=== PATIENT | male | born 1985 | race Caucasian/White ===

== ENCOUNTER 2020-12-02 16:30 | Emergency (ER) | payer BC, SELFPAY ==
--- NOTE | ~2020-12-02 | XR_ITS ---
EXAMINATION: XR hip RT 2V w AP pelvis DATE: 12/02/2020 17:21 INDICATION: Right hip injury and pain. TECHNIQUE: An anteroposterior pelvis and 2 views of right hip on a total of 4 radiographs were obtain ed. COMPARISON: Pelvis and right hip radiographs 07/20/2017 FINDINGS: Bone alignment is normal. No fracture. There is mild right hip osteoarthritis characterized by a tiny osteophyte. IMPRESSION: 1. Mild right hip osteoarthritis. Reviewed, dictated and finalized at location A.
--- NOTE | ~2020-12-02 | XR_ITS ---
EXAMINATION: XR lumbar spine 2-3V DATE: 12/02/2020 17:23 INDICATION: Low back injury. TECHNIQUE: 7 views of lumbar spine were obtained. COMPARISON: Lumbar spine radiograph 11/14/2010, CT abdomen and pelvis 11/19/2018 FINDINGS: There are chronic bilateral L5 pars defects. There is 11 mm anterolisthesis of L5 on S1. Ve rtebral body heights are normal. There is moderately decreased disc height at L5-S1. The facet joints are unremarkable. There is a 2 mm stone in right kidney. IMPRESSION: 1. Chronic bilateral L5 pars defects with chronic grade 2 anterolisthesis of L5 on S1. 2. Moderate degenerative disc disease at L5-S1. Reviewed, dictated and finalized at location A.
--- NOTE | 2020-12-02 16:40 | ED.LOWEXIN ---
HPI - Extremity Injury (Lower) General Chief Complaint: Extremity Injury, Lower Stated Complaint: Leg Pain Time Seen by Provider: 12/02/20 16:40 Source: patient and RN notes reviewed Mode of arrival: ambulatory Limitations: no limitations History of Present Illness HPI Narrative: 35-year-old male presents to the [facility] with complaints of right hip pain for the last 3 months. States he fell off a roof approximately 12 feet approximately 3 months ago. Did not seek medical treatment at that time. Patient reports that the pain in his right hip has been getting worse. States that he was unable to sleep last night. Tried to follow-up with his primary care provider this morning however due to an insurance change was unable to follow-up. Walks with a normal gait. Tenderness to lower back. Patient states the pain radiates down his leg. Denies any loss or retention of bowel or bladder. Related Data Home Medications Medication Instructions Recorded Confirmed escitalopram oxalate 1 mg PO DAILY 12/02/20 12/02/20 Allergies Allergy/AdvReac Type Severity Reaction Status Date / Time No Known Allergies Allergy Verified 12/02/20 16:45 Review of Systems Review of Systems: All systems reviewed & are unremarkable except as noted in HPI and below Constitutional: Constitutional: Reports no additional constitutional complaints, Denies chills, Denies fever(s) and Denies weakness Eyes: Eyes: Reports no additional eye complaints, Denies change in vision and Denies photophobia ENT: Reports system reviewed and no additional complaints, except as documented Cardiovascular: Cardiovascular: Reports no additional cardiovascular complaints Respiratory: Respiratory: Reports no additional respiratory complaints, Denies chest congestion, Denies cough, Denies dyspnea and Denies wheezing Gastrointestinal: Gastrointestinal: Reports no additional gastrointestinal complaints, Denies abdominal pain, Denies diarrhea, Denies nausea and Denies vomiting Genitourinary: Genitourinary: Reports no additional male genitourinary complaints, Denies oliguria, Denies dysuria, Denies urinary frequency and Denies urinary incontinence Musculoskeletal: Musculoskeletal: Reports as per HPI and Reports arthralgias (right hip) Integumentary/Breasts: Skin/Breast: Reports system reviewed and no additional complaints, except as docu, Denies pruritus and Denies rash Neurologic: Reports system reviewed and no additional complaints, except as documented, Denies vertigo, Denies dizziness, Denies syncope, Denies headache(s), Denies focal weakness, Denies numbness and Denies weakness Psychiatric: Psychiatric: Reports no additional psychiatric complaints Allergic/Immunologic: Allergic/Immunologic: Reports no additional allergic/immunologic complaints PMFSH Social History Social History Gender identity (if verbalized by the patient): Male Comments At the time of my signature, I reviewed and agree with the nursing past medical, surgical, social, and family history. There is no relevant family history pertinent to the patient complaint. Exam Const: General: healthy appearing, no acute distress and alert Nutritional Appearance: well nourished Orientation/consciousness: patient oriented x3 Limitations: no limitations HENMT: Head: normal to inspection Eyes: Conjunctivae: conjunctivae normal Pupils: Equal, round and reactive pupils present EOM: EOMs intact bilaterally Neck: Neck: normal visual inspection, no lymphadenopathy and no meningeal signs Chest: Chest palpation & inspection: normal inspection of the chest Resp: Effort & Inspection: normal respiratory effort and no use of accessory muscles Auscultation: clear to auscultation bilaterally, no crackles, no rales, no rhonchi and no wheezes Cardio: Rate: regular rate Rhythm: regular rhythm GI: GI Palp: Yes Soft to palpation and No Tenderness to palpation present (GI) Ba
[2020-12-02 16:45] VITALS: BP 147/92; PULSE 64; RESP 16; TEMP 36.8; O2SAT 99
== END 2020-12-02 17:58 | disposition home or self-care (01) ==
PROVIDERS: Emergency Provider Nurse Practitioner; PCP Physician Assistant
DX: M25.551 Pain in right hip (principal); M54.5 Low back pain; F41.9 Anxiety disorder, unspecified
CPT/HCPCS: 72100; 73502; 99214; G0463

== ENCOUNTER 2021-06-27 09:07 | Emergency (ER) | payer OTHER, BC, SELFPAY ==
--- NOTE | ~2021-06-27 | XR_ITS ---
EXAMINATION: XR ankle RT min 3V DATE: 06/27/2021 09:54 INDICATION: Posterior medial right ankle pain post twisting injury 2 days prior TECHNIQUE: Anteroposterior, oblique, mortise, and lateral views of the right ankle were obtained. COMPARISON: None. FINDINGS: Alignment is normal. No fracture. Joint spaces are well maintained. No ankle joint effusion. Small osteophyte along the anterior margin of the tibial plafond. Tiny Achilles calcaneal spur. Suggestion of ankle and talonavicular joint effusions with increased density at the anterior and dorsal recesses of the respective joint spaces. The soft tissues are otherwise unremarkable. IMPRESSION: 1. No acute osseous abnormality. Reviewed, dictated and finalized at location A. [facility]
--- NOTE | 2021-06-27 09:20 | ED.LOWEXIN ---
HPI - Extremity Injury (Lower) General Chief Complaint: Extremity Injury, Lower Stated Complaint: Right Ankle Pain Time Seen by Provider: 06/27/21 09:55 Source: patient and RN notes reviewed Mode of arrival: ambulatory Limitations: no limitations History of Present Illness HPI Narrative: 35-year-old male presents with concern for right ankle pain. He reports he twisted the ankle 2 days ago. He reports he has been wearing supportive ankle boots and the pain is minimal when he is wearing the boot. Reports when he takes it off the pain increases. He denies any other intervention. Reports a history of a severe sprain in that ankle many years ago. He denies redness, warmth, open skin. MD complaint: ankle injury Related Data Home Medications Medication Instructions Recorded Confirmed escitalopram oxalate 10 mg PO DAILY 06/27/21 06/27/21 lisinopril 10 mg PO DAILY 06/27/21 06/27/21 tramadol 50 mg PO DAILY 06/27/21 06/27/21 Allergies Allergy/AdvReac Type Severity Reaction Status Date / Time No Known Allergies Allergy Verified 06/27/21 09:21 Review of Systems Review of Systems: CONSTITUTIONAL: Denies malaise, chills, sweats, or fever. SKIN: Denies rash or itching, open skin, laceration, abrasion, redness, warmth, swelling. MUSCULOSKELETAL: Reports right ankle pain NEUROLOGIC: Denies numbness, weakness All systems reviewed & are unremarkable except as noted in HPI and below PMFSH Social History Social History Gender identity (if verbalized by the patient): Male Comments At time of signature, agree with nursing past medical, surgical, social and family history. There is no relevant family history pertinent to the presenting complaint Exam Narrative: GENERAL: Well-appearing, well-nourished, and in no acute distress. HEAD: Normocephalic, atraumatic. EYES: PERRLA, conjunctivae clear NECK: Supple. CHEST: Speaks in full sentences. No respiratory distress. HEART: Regular rate and rhythm. Normal and equal peripheral pulses. EXTREMITIES: Right ankle has normal strength and sensation, normal range of motion. No edema or ecchymosis. 5/5 strength with ankle and digit flexion and extension. Normal sensation with sensitivity to light touch and pain. Posterior lateral tenderness. No open wounds, no skin tenting, no devitalized tissue or atrophy, no trophic changes, no obvious deformity, alignment normal, nearby joints and structures intact. Distal pulses palpable and equal bilaterally, skin warm, dry, pink. Capillary refill less than 3 seconds. SKIN: Warm, dry, no rash. NEURO: Alert and oriented x3. PSYCH: Normal mood and affect Course Course Emergency Course: Patient is aware of diagnosis, understands and agrees to treatment plan. Anticipatory guidance given. Patient agrees to follow-up as directed and is aware of reasons to seek care at the emergency department. Portions of this record may have been created with voice recognition software Level of Care: Express Care Visit Vital Signs Vital signs: Reviewed. MDM - Extremity Injury (Lower) MDM Narrative Medical decision making narrative: Patients injury and pain is consistent with musculoskeletal etiology. No signs of neurological or vascular compromise on exam. Compartments and tissues are soft without signs of compartment syndrome. Pain is felt appropriate for further evaluation on an outpatient basis. Imaging Data Radiologist's impression: EXAMINATION: XR ankle RT min 3V DATE: 06/27/2021 09:54 INDICATION: Posterior medial right ankle pain post twisting injury 2 days prior TECHNIQUE: Anteroposterior, oblique, mortise, and lateral views of the right ankle were obtained. COMPARISON: None. FINDINGS: Alignment is normal. No fracture. Joint spaces are well maintained. No ankle joint effusion. Small osteophyte along the anterior margin of the tibial plafond. Tiny Achilles calcaneal spur. Suggestion of ankle and talonavicular amy
[2021-06-27 09:25] VITALS: BP 137/91; PULSE 77; RESP 18; TEMP 36.1; O2SAT 98
== END 2021-06-27 10:18 | disposition home or self-care (01) ==
PROVIDERS: Emergency Provider Nurse Practitioner; PCP Family Medicine
DX: S93.401A Sprain of unspecified ligament of right ankle, initial encounter (principal); S96.911A Strain of unspecified muscle and tendon at ankle and foot level, right foot, initial encounter; X58.XXXA Exposure to other specified factors, initial encounter; M25.471 Effusion, right ankle; I10 Essential (primary) hypertension; F41.9 Anxiety disorder, unspecified; F32.A Depression, unspecified
CPT/HCPCS: 73610; 99213; G0463

== ENCOUNTER 2021-11-24 17:47 | Emergency (ER) | payer BC, SELFPAY ==
[2021-11-24 17:56] VITALS: BP 143/82; PULSE 78; RESP 16; TEMP 36.8; O2SAT 99
[2021-11-24 17:57] VITALS: BP 143/82; PULSE 78; RESP 16; TEMP 36.8; O2SAT 99
--- NOTE | 2021-11-24 18:23 | ED.EYEPROB ---
HPI - Eye Problem General Chief complaint: Eye Problems Stated complaint: Rosine Eye Time Seen by Provider: 11/24/21 18:20 Source: patient Mode of arrival: ambulatory Limitations: no limitations History of Present Illness HPI Narrative: Patient presented for complaint of right eye swelling and itching. She he states yesterday evening it felt tender. He woke this morning with green pus drainage which has not returned. He denies vision changes, headache, or eye pain. Denies injury, foreign body sensation, or photophobia. chief complaint: eye pain Related Data Home Medications Medication Instructions Recorded Confirmed escitalopram oxalate 10 mg tablet 10 mg PO DAILY 06/27/21 11/24/21 lisinopril 10 mg tablet 10 mg PO DAILY 06/27/21 11/24/21 Allergies Allergy/AdvReac Type Severity Reaction Status Date / Time No Known Allergies Allergy Verified 11/24/21 17:56 Review of Systems Review of Systems: CONSTITUTIONAL: Denies body aches, fever, chills EYES:Endorses swelling, redness to right eye ENT: Denies rhinorrhea, congestion, sore throat, or otalgia. CARDIOVASCULAR: Denies chest pain, palpitations RESPIRATORY: Denies cough or dyspnea. SKIN: Denies rash, itching, or wounds. MUSCULOSKELETAL: Denies back pain, joint pain, or myalgia. NEUROLOGIC: Denies headache, numbness, tingling, or weakness. All systems reviewed & are unremarkable except as noted in HPI and below PMFSH Social History Social History Gender identity (if verbalized by the patient): Male Comments At time of signature, I have reviewed and agree with nursing past medical, surgical, social and family history unless otherwise noted. Please see nursing chart for further information. There is no relevant family history pertinent to the presenting complaint Exam Narrative: GENERAL: Well-appearing HEAD: Normocephalic, atraumatic. EYES: Right conjunctival injection, lower eye lid swelling/redness; no stye. EOMI. Lid eversion showed no FB ENT: Mucous membranes pink and moist. No rhinorrhea. CHEST: No respiratory distress. Clear to auscultation. HEART: Regular rate and rhythm. No murmur appreciated. Normal peripheral pulses. SKIN: Warm, dry, no rash. Normal skin turgor. NEURO: No focal deficits. Alert and oriented x3. Steady gait Course Course Emergency Course: Patient is aware of diagnosis, understands and agrees to treatment plan. Anticipatory guidance given. Patient agrees to follow-up as directed and is aware of reasons to seek care at the emergency department. Portions of this record may have been created with voice recognition software Level of Care: Express Care Visit Vital Signs Vital signs: Vital Signs Temperature 98.2 F 11/24/21 17:56 Pulse Rate 78 11/24/21 17:56 Respiratory Rate 16 11/24/21 17:56 Blood Pressure 143/82 H 11/24/21 17:56 Pulse Oximetry 99 11/24/21 17:56 Oxygen Delivery Room Air 11/24/21 17:56 Temperature 98.2 F 11/24/21 17:57 Pulse Rate 78 11/24/21 17:57 Respiratory Rate 16 11/24/21 17:57 Blood Pressure 143/82 H 11/24/21 17:57 Pulse Oximetry 99 11/24/21 17:57 Oxygen Delivery Room Air 11/24/21 17:57 MDM - Eye Problem Differential Diagnosis Differential diagnosis: Likely corneal abrasion, conjunctivitis, acute iritis and other Discharge Plan Discharge Clinical Impression: Bacterial conjunctivitis Patient Disposition: Home, Self-Care Condition: Stable Instructions: Antibiotic Form, Conjunctivitis (ED) Additional Instructions: Avoid touching or rubbing your eye. Use over the counter lubricating eye drops as needed for irritation Use a warm or cool washcloth on your eye for comfort Use eyedrops as directed - you are contagious for 24 hours after starting the antibiotic Practice good handwashing and hygiene to prevent spread of infection You may take Tylenol or ibuprofen for pain Follow-up with
== END 2021-11-24 18:35 | disposition home or self-care (01) ==
PROVIDERS: Emergency Provider Nurse Practitioner Family; PCP Emergency Medicine
DX: H10.9 Unspecified conjunctivitis (principal); I10 Essential (primary) hypertension; F41.9 Anxiety disorder, unspecified; F32.A Depression, unspecified
CPT/HCPCS: 99213; G0463

== ENCOUNTER 2021-12-16 09:31 | Emergency (ER) | payer BC, SELFPAY ==
[2021-12-16 09:45] VITALS: BP 164/96; PULSE 65; RESP 18; TEMP 37; O2SAT 99
--- NOTE | 2021-12-16 09:49 | ED.CHESTPAIN ---
HPI - Chest Pain General Chief Complaint: Chest Pain Stated Complaint: Chest and Arm Pain Time Seen by Provider: 12/16/21 10:05 Source: patient Mode of arrival: ambulatory Limitations: no limitations History of Present Illness HPI narrative: 36-year-old male presents with concern for left arm and left chest pain. He reports pain started several days ago and his elbow, radiates down his arm, and he is now having left chest wall and shoulder pain. He denies injury or trauma. He reports the pain is reproducible with range of motion. He reports it is tender to touch. 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 He reports he does have an appoint with a health science specialist for a general checkup because he has history of high blood pressure and high cholesterol. He denies shortness of breath, chest pain that worsens with exertion. He denies rash, redness, bruising, swelling. MD complaint: other (Left arm and chest pain) Related Data Allergies Allergy/AdvReac Type Severity Reaction Status Date / Time No Known Allergies Allergy Verified 12/16/21 09:58 Review of Systems Review of Systems: CONSTITUTIONAL: Denies malaise, chills, sweats, or fever. CARDIOVASCULAR: Reports chest wall pain. Denies palpitations, or edema. RESPIRATORY: Denies cough or dyspnea. SKIN: Denies rash or itching, bruising, swelling, redness, warmth MUSCULOSKELETAL: Reports left arm pain, left shoulder pain left chest wall pain NEUROLOGIC: Denies numbness, weakness, or headache. PSYCHIATRIC: Reports history of anxiety All systems reviewed & are unremarkable except as noted in HPI and below PMFSH Social History Social History Gender identity (if verbalized by the patient): Male Comments At time of signature, agree with nursing past medical, surgical, social and family history. There is no relevant family history pertinent to the presenting complaint Exam Narrative: GENERAL: Well-appearing, well-nourished, and in no acute distress. HEAD: Normocephalic, atraumatic. EYES: PERRLA, conjunctivae clear NECK: Supple. CHEST: Speaks in full sentences. No respiratory distress. HEART: Regular rate and rhythm. Normal and equal peripheral pulses. EXTREMITIES: Left shoulder, arm has normal strength and sensation, normal range of motion. No edema or ecchymosis. 5/5 strength with hand, digit, elbow, shoulder flexion and extension. Normal sensation with sensitivity to light touch and pain. Chest wall tenderness, elbow tenderness. Flexion of the hand elicits elbow pain. No open wounds, no skin tenting, no devitalized tissue or atrophy, no trophic changes, no obvious deformity, alignment normal, nearby joints and structures intact. Distal pulses palpable and equal bilaterally, skin warm, dry, pink. Capillary refill less than 3 seconds. SKIN: Warm, dry, no rash. NEURO: Alert and oriented x3. PSYCH: Normal mood and affect Course Course Emergency Course: Patient is aware of diagnosis, understands and agrees to treatment plan. Anticipatory guidance given. Patient agrees to follow-up as directed and is aware of reasons to seek care at the emergency department. Portions of this record may have been created with voice recognition software Level of Care: Express Care Visit Vital Signs Vital signs: Reviewed. MDM - Chest Pain MDM Narrative Medical decision making narrative: Patients pain is consistent with musculoskeletal etiology, pain is reproducible, tender. EKG is unremarkable. No signs of neurological or vascular compromise on exam. Compartments and tissues are soft without signs of compartment syndrome. Pain is felt appropriate for further evaluation on an outpatient basis. ECG Data EKG #1: ECG completion date: 12/16/21 ECG completion time: 09:57 Prior ECG tracings: available for review Interpretation: Rate 58, parable 171, QRS ration 85, QT 380, QTc 377 EKG Interpretation: bradycardia an
--- NOTE | 2021-12-16 10:14 | ECG_ITS ---
Measurements Intervals [place] Rate: 58 P: 10 TX: 171 QRS: 17 QRSD: 85 T: -2 QT: 380 QTc: 375 Interpretive Statements SINUS BRADYCARDIA BORDERLINE ST-T WAVE ABNORMALITY- INFERIOR LEADS BASELINE ARTIFACT- I, III, AVR ,AVL, AVF, V4-V6 BORDERLINE ECG Electronically Signed On 12-16-2021 13:49:55 CDT by Wellington Minaya D.O.
== END 2021-12-16 10:18 | disposition home or self-care (01) ==
PROVIDERS: Emergency Provider Nurse Practitioner; PCP Emergency Medicine
DX: M79.602 Pain in left arm (principal); E78.00 Pure hypercholesterolemia, unspecified; I10 Essential (primary) hypertension
CPT/HCPCS: 93005; 99213; G0463